=== PATIENT | male | born 1960 | race Caucasian/White ===

== ENCOUNTER 2020-01-20 13:05 | Emergency (ER) | payer SELFPAY ==
[2020-01-20 13:06] VITALS: BP 161/93; PULSE 82; RESP 16; TEMP 36.8; O2SAT 96; BMI 33.7
--- NOTE | 2020-01-20 13:10 | XR_ITS ---
WS: [id number] Portable AP upright chest, 01/20/2020 Clinical Data: cp Comparison: None. Findings: No nodules, masses or effusions are seen. The heart is normal. The pulmonary vascularity is not increased. No pneumonia or pneumothorax is seen. XR/XR chest 1V portable [id number] Impression: Negative chest.
--- NOTE | 2020-01-20 13:11 | ECG_ITS ---
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 Measurements Intervals [place] Rate: 78 P: 70 AK: 168 QRS: -22 QRSD: 110 T: 31 QT: 362 QTc: 413 Interpretive Statements SINUS RHYTHM WITH OCCASIONAL SUPRAVENTRICULAR PREMATURE COMPLEXES BORDERLINE LEFT AXIS DEVIATION [QRS AXIS < -20] No previous ECG available for comparison Electronically Signed On 01-20-2020 16:08:07 DRAFTER ELECTRONIC by Demarcus Tang M.D. [id number]
--- NOTE | 2020-01-20 13:14 | W.ED.BACK ---
HPI - Back Pain/Injury General: Chief Complaint: Back Pain/Injury Stated Complaint: CHEST PAIN Time Seen by Provider: 01/20/20 13:10 Source: patient Mode of arrival: ambulatory Limitations: no limitations History of Present Illness: HPI Narrative: 59-year-old male states he woke up at 10 with some left-sided shoulder pain. He states it was a cramping squeezing type pain. States he had some diaphoresis. Patient son called EMS. He denies any chest pain states his symptoms have since resolved. Denies any shortness of breath. Denies any vomiting or diarrhea. Denies any worsening or improving factors. Associated symptoms: Deny abdominal pain, chills, dysuria, fever(s), nausea or vomiting Review of Systems Const: Denies: fever(s), chills, body aches or change in appetite Eyes: Denies: blurry vision or eye discomfort ENMT: Denies: throat pain or dental pain Card: Reports: chest pain Resp: Denies: dyspnea GI: Denies: abdominal pain, nausea, vomiting or diarrhea : Denies: dysuria Musc: Denies: neck pain or back pain Skin/Breast: Denies: rash Neuro: Denies: headache(s) Psych: Denies: depression Leonel/Lymph: Denies: easy bruising All/Imm: Denies: urticaria Physical Exam Const: COMMON NORMALS: no acute distress, patient oriented x3 and healthy appearing HENMT: COMMON NORMALS: normocephalic and atraumatic HEAD & SCALP: normocephalic and atraumatic Eye: COMMON NORMALS: Equal, round and reactive pupils present and EOMs intact bilaterally PUPIL: Yes Equal, round and reactive pupils present Neck/C-Spine: COMMON NORMALS: full ROM and supple Chest: COMMONS NORMALS: normal inspection of the chest and normal palpation of entire chest wall Resp: COMMON NORMALS: normal respiratory effort, No retractions, No use of accessory muscles and clear to auscultation bilaterally AUSCULTATION: clear to auscultation bilaterally Cardio: COMMON NORMALS: regular rate, regular rhythm and No murmurs present (Cardio) RATE: regular rate RHYTHM: regular rhythm GI: COMMON NORMALS: Normal to inspection, nondistended, normoactive bowel sounds present, Soft to palpation, non-tender and no masses PALPATION: Yes Soft to palpation Extremity: COMMON NORMALS: normal to inspection and full ROM Neuro: COMMON NORMALS: patient oriented x3, moves all extremities and no focal motor deficits Psych: COMMON NORMALS: mental status grossly normal, Normal thought process present and cooperative THOUGHT PROCESS: Normal thought process present Skin: COMMON NORMALS: no rashes or lesions noted and no wounds GENERAL SKIN EXAM: no rashes or lesions noted Course Vital Signs: Vital signs: Vital Signs Temperature 98.3 F 01/20/20 13:06 Pulse Rate 76 01/20/20 15:32 Respiratory Rate 20 H 01/20/20 15:32 Blood Pressure 140/82 01/20/20 15:32 Pulse Oximetry 98 01/20/20 15:32 MDM - Back Pain/Injury MDM Narrative: Medical decision making narrative: Jameel presents here with left shoulder pain and some chest pain that is atypical in nature. He has been pain-free here. Initial and repeat troponin are normal. Patient has no signs of pulmonary embolism. His x-ray was clear. He is stable for discharge this follow-up with PCP in 2 to 4 days return if worsening. Lab Data: Labs: Lab Results 01/20/20 01/20/20 01/20/20 Range/Units 11:20 11: 11: WBC 6.0 (4.0-10.0) 10^3/ uL RBC 5.32 H (4.1-5.3) 10^6/u L Hgb 15.5 (11.7-16.6) g/dL Hct 45.4 (42.0-52.0) % MCV 85.3 (80-94) fL MCH 29.1 (28.0-34.0) pg MCHC 34.1 (30.0-36.0) g/dL RDW 12.1 (12.1-15.1) % Plt Count 181 (130-400) 10^3/c mm MPV 9.7 (7.4-10.4) fL Neut % (Auto) 45.1 % Lymph % (Auto) 45.7 % Bill[place] % (Auto) 6.0 % Eos % (Auto) 2.2 % Baso % (Auto) 0.5 % Neut # (Auto) 2.72 (1.8-7.7) 10^3/u L Lymph # (Auto) 2.8 (0.8-4.8) 10^3/u L Bill[place] # (Auto) 0.4 (0.2-0.9) 10^3/u L Eos # (Auto) 0.1 (0.0-0.8) 10^3/u L Baso # (Auto) 0.0 (0.0-0.1) 10^3/u L Nucleated RBC % (a uto) 0 % Nucleated RBCs # 0.0 /100WBC Sodium 138 (136-145) mmol/L Potassium 4.2 (3.5-5.1) mmol/L Chloride 102 (98-107) mmol/L Carbon Dioxide 27 (22-29) mmol/L Anion Gap 13.2 (5-19) BUN 18 (8-23) mg/dL Creatinine 0.9 (0.7-1.2) mg/dL GFR Calculation 85.8 L (90-130) mL/min Glucose 125 H (65-115) mg/dL Calculated Osmolal ity 289 (285-295) mOsm/k g Calcium 9.1 (8.5-10.5) mg/dL Total Bilirubin 0.6 (0.15-1.2) mg/dL AST 23 (0-40) U/L ALT 30 (0-41) U/L Alkaline Phosphata se 76 (40-130) IU/L Troponin T Baselin e 12 (0-15) ng/L Troponin T 120 Min angie (0-15) ng/L Delta Troponin T (0-10) ABS# Total Protein 6.9 (6.6-8.7) g/dL Albumin 4.7 (3.5-5.2) g/dL Globulin 2.2 (1.3-4.6) g/dL 01/20/20 Range/Units 14:37 WBC (4.0-10.0) 10^3/ uL RBC (4.1-5.3) 10^6/u L Hgb (11.7-16.6) g/dL Hct (42.0-52.0) % MCV (80-94) fL MCH (28.0-34.0) pg MCHC (30.0-36.0) g/dL RDW (12.1-15.1) % Plt Count (130-400) 10^3/c mm MPV (7.4-10.4) fL Neut % (Auto) % Lymph % (Auto) % Bill[place] % (Auto) % Eos % (Auto) % Baso % (Auto) % Neut # (Auto) (1.8-7.7) 10^3/u L Lymph # (Auto) (0.8-4.8) 10^3/u L Billings # (Auto) (0.2-0.9) 10^3/u L Eos # (Auto) (0.0-0.8) 10^3/u L Baso # (Auto) (0.0-0.1) 10^3/u L Nucleated RBC % (a uto) % Nucleated RBCs # /100WBC Sodium (136-145) mmol/L Potassium (3.5-5.1) mmol/L Chloride (98-107) mmol/L Carbon Dioxide (22-29) mmol/L Anion Gap (5-19) BUN (8-23) mg/dL Creatinine (0.7-1.2) mg/dL GFR Calculation (90-130) mL/min Glucose (65-115) mg/dL Calculated Osmolal ity (285-295) mOsm/k g Calcium (8.5-10.5) mg/dL Total Bilirubin (0.15-1.2) mg/dL AST (0-40) U/L ALT (0-41) U/L Alkaline Phosphata se (40-130) IU/L Troponin T Baselin e (0-15) ng/L Troponin T 120 Min angie 10.33 (0-15) ng/L Delta Troponin T -1.67 L (0-10) ABS# Total Protein (6.6-8.7) g/dL Albumin (3.5-5.2) g/dL Globulin (1.3-4.6) g/dL Imaging Data^: CXR: Radiologist's impression: [address] [address] XRay Report Signed Patient: JAMEEL MARROQUIN Unit #: [id number] : 1960 Age/Sex: 59 / M ADM Date: 01/20/20 Loc: ER Room/Bed: Attending Dr: Ordering Provider/Ordering MD: Chester Milian MD Date of Service: 01/20/20 Procedure(s): XR chest 1V portable [id number] Accession Number(s): [id number] Report Number: [id number] WS: [id number] Portable AP upright chest, 01/20/2020 Clinical Data: cp Comparison: None. Findings: No nodules, masses or effusions are seen. The heart is normal. The pulmonary vascularity is not increased. No pneumonia or pneumothorax is seen. XR/XR chest 1V portable [id number] Impression: Negative chest. EKG Data^: EKG 1: Attestation: I personally reviewed and interpreted this EKG as follows: EKG interpretation date: 01/20/20 EKG interpretation time: 13:07 Interpretation: nsr hr [address] or t wave abnormalities qrs 110 qtc 395 EKG 2: Attestation: I personally reviewed and interpreted this EKG as follows: EKG interpretation date: 01/20/20 EKG interpretation time: 15:39 Interpretation: nsr hr [address] or t wave abnormalities qrs 97 qtc 415 Discharge Plan Discharge Patient Disposition: Home Clinical Impression: Chest pain Qualifiers: Chest pain type: unspecified Qualified Code(s): R07.9 - Chest pain, unspecified Condition: Stable Prescriptions: No Action magnesium 250 mg Tablet 250 mg PO DAILY RF: 0 loratadine 10 mg Tablet 10 mg PO DAILY RF: 0 Discharge Orders: Discharge Order (Routine); Ordered 01/20/20 Ordered By: Chester Milian Referrals: Víctor Pearce [Primary Care Provider] - Discharge Diet: Advance as tolerated Discharge Activity: Resume usual activity Patient Instructions: Chest Pain (ED) Coding Level of Care Code ED Plc Engineer for Chg Fwd Exam Comprehensive
[2020-01-20 13:24] LABS: Basophils % 0.5 %; Eosinophils # 0.1 10^3/uL (0.0-0.8); Eosinophils % 2.2 %; Hematocrit 45.4 % (42.0-52.0); Hemoglobin 15.5 g/dL (11.7-16.6); Lymphocytes # 2.8 10^3/uL (0.8-4.8); Lymphocytes % 45.7 %; Mean Corpuscular HGB Conc 34.1 g/dL (30.0-36.0); Mean Corpuscular Hemoglobin 29.1 pg (28.0-34.0); Mean Corpuscular Volume 85.3 fL (80-94); Mean Platelet Volume 9.7 fL (7.4-10.4); Monocytes # 0.4 10^3/uL (0.2-0.9); Neutrophils # 2.72 10^3/uL (1.8-7.7); Neutrophils % 45.1 %; Nucleated Red Blood Cells % 0 %; Platelet Count 181 10^3/cmm (130-400); Red Blood Count 5.32 10^6/uL (4.1-5.3); Red Cell Distribution Width 12.1 % (12.1-15.1)
[2020-01-20 13:31] VITALS: BP 161/89; PULSE 79; RESP 18; O2SAT 96
[2020-01-20 14:36] LABS: Alanine Aminotransferase 30 U/L (0-41); Albumin Level 4.7 g/dL (3.5-5.2); Alkaline Phosphatase 76 IU/L (40-130); Anion Gap 13.2 (5-19); Aspartate Amino Transferase 23 U/L (0-40); Blood Urea Nitrogen 18 mg/dL (8-23); Calcium 9.1 mg/dL (8.5-10.5); Carbon Dioxide 27 mmol/L (22-29); Chloride 102 mmol/L (98-107); Creatinine Clr Calc Pharmacy 111.8411; Globulin 2.2 g/dL (1.3-4.6); Glomerular Filtration Rate 85.8 mL/min (90-130); Glucose 125 mg/dL (65-115); Osmolality Calculated 289 mOsm/kg (285-295); Potassium 4.2 mmol/L (3.5-5.1); Sodium 138 mmol/L (136-145); Total Bilirubin 0.6 mg/dL (0.15-1.2); Total Protein 6.9 g/dL (6.6-8.7); Troponin(5th) Baseline 12 ng/L (0-15)
--- NOTE | 2020-01-20 15:11 | ECG_ITS ---
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 Measurements Intervals [place] Rate: 68 P: 60 IA: 164 QRS: -25 QRSD: 97 T: 33 QT: 397 QTc: 424 Interpretive Statements SINUS RHYTHM BORDERLINE LEFT AXIS DEVIATION [QRS AXIS < -20] Compared to ECG 01/20/2020 13:07:42 No significant changes Electronically Signed On 01-20-2020 17:26:26 CONSTRUCTION HELPER by Demarcus Tang M.D. [id number]
[2020-01-20 15:32] VITALS: BP 140/82; PULSE 76; RESP 20; O2SAT 98
--- NOTE | 2020-01-20 16:05 | PC.NURSE ---
No acute distress, continue to monitor
[2020-01-20 16:22] LABS: Troponin 5 2HR 10.33 ng/L (0-15)
[2020-01-20 16:23] LABS: Troponin 5 2HR Delta -1.67 ABS# (0-10)
[2020-01-20 16:53] VITALS: BP 153/95; PULSE 75; RESP 18; TEMP 36.4; O2SAT 96
== END 2020-01-20 16:55 | disposition home or self-care (01) ==
PROVIDERS: Emergency Provider Emergency Medicine; PCP Physician Assistant Medical
DX: R07.9 Chest pain, unspecified (principal)
CPT/HCPCS: 12345; 71045; 80053; 84484; 85025; 93005; 99283

== ENCOUNTER → 2021-12-04 09:24 | Outpatient (BNVA) | payer BC, MEDICAID, SELFPAY | PROVIDERS: PCP Physician Assistant Medical; Visit Provider Surgery | DX: K42.9 Umbilical hernia without obstruction or gangrene (principal); R19.5 Other fecal abnormalities | CPT/HCPCS: 99203 ==

== ENCOUNTER 2022-03-23 09:07 | Day surgery (SDC) | payer BC, MEDICAID, SELFPAY ==
[2022-03-20 12:46] VITALS: BMI 30.5
[2022-03-23 09:32] VITALS: BP 153/87; PULSE 60; RESP 18; TEMP 36.2; O2SAT 99
[2022-03-23] MEDS: sodium chloride 0.9% 1,000 ML 30 ML IV (09:45)
[2022-03-23 09:50] LABS: Glucose Point of Care 97 mg/dL (70-110)
--- NOTE | 2022-03-23 10:22 | P.ANESASSM_ITS ---
Pre-Anesthetic Assessment Height/Weight: Height 1.83 m Weight 102.058 kg Temp Pulse Resp BP Pulse Ox O2 Del Method 97.2 F L 60 18 153/87 99 03/23/22 09:32 03/23/22 09:32 03/23/22 09:32 03/23/22 09:32 03/23/22 09:32 03/23/22 09:32 Preop Diagnosis: screening Operation Date: 03/23/22 10:45 Proposed Procedures p Colonoscopy 08963,Z12.11(Not Applicable) - Kalen Stanford DO Familial anesthetic complications: none Was Beta Sabrina taken within 24 hours: N/A Was Clonidine taken within 24 hours: N/A Last intake: Intake Last Liquid Date 03/22/22 Last Liquid Time 22:30 Last Solid Date 03/22/22 Last Solid Time 20:00 Social No alcohol and No tobacco Airway Submandibular: within normal limits Cervical ROM: within normal limits Mallampati: Class II Dentition: chipped (molar on right side.) Pulmonary None reported CV/HEM Hypertension None reported Hepatic None reported GI Gastroesophageal Reflux Disease Metabolic Diabetes Mellitus and Hyperlipidemia [facility] [place] None reported Neuropsych None reported Anesthetic Plan ASA status: 2 Anesthesia: MAC Medications/Allergies Home Medications Medication Instructions Recorded Confirmed Last Taken Type atorvastatin 20 mg tablet 20 mg PO DAILY 11/01/21 03/23/22 03/21/22 History metformin 500 mg tablet 1 mg PO BID 11/01/21 03/23/22 03/22/22 History peg 3350-electrolytes 236 240 ml PO Q10M #4,000 mL 12/04/21 03/23/22 03/22/22 Rx gram-22.74 gram-6.74 gram-5.86 gram solution (Golytely) hydrochlorothiazide 12.5 mg tablet 12.5 mg PO DAILY 03/20/22 03/23/22 03/22/22 H istory Allergies Allergy/AdvReac Type Severity Reaction Status Date / Time Penicillins Allergy ALGY-Hives Verified 03/23/22 09:46 Current Medications Generic Name Dose Route Start Last Admin Trade Name Freq PRN Reason Stop Dose Admin Sodium Chloride 1,000 mls @ 30 mls/hr 03/23/22 09:30 03/23/22 09:45 Sodium Chloride 0.9% IV 03/24/22 09:29 30 mls/hr .Q24H LAUREN Administration PFSH Anesthesia Medical History Hyperlipidemia Umbilical hernia Surgical History Hx of appendectomy Hx of hernia repair AGE 18'S Hx of tonsillectomy Social History Smoking and tobacco status: never smoked Data Anesthesia Cardiac Studies: No Data to Display
--- NOTE | 2022-03-23 10:48 | PM.HP ---
Providers/Chief Complaint Primary Care Provider: Víctor Pearce Chief Complaint: encounter for screening History of Present Illness Jameel Pearson is a 61 year old male here for colonoscopy Medications/Allergies Home Medications Medication Instructions Recorded Confirmed Last Taken Type atorvastatin 20 mg tablet 20 mg PO DAILY 11/01/21 03/23/22 03/21/22 History metformin 500 mg tablet 1 mg PO BID 11/01/21 03/23/22 03/22/22 History peg 3350-electrolytes 236 240 ml PO Q10M #4,000 mL 12/04/21 03/23/22 03/22/22 Rx gram-22.74 gram-6.74 gram-5.86 gram solution (Golytely) hydrochlorothiazide 12.5 mg tablet 12.5 mg PO DAILY 03/20/22 03/23/22 03/22/22 History Allergies Allergy/AdvReac Type Severity Reaction Status Date / Time Penicillins Allergy ALGY-Hives Verified 03/23/22 09:46 PFSH Acute PFSH: Medical History Hyperlipidemia Umbilical hernia Surgical History Hx of appendectomy Hx of hernia repair AGE 18'S Hx of tonsillectomy Social History Smoking and tobacco status: never smoked Vitals/I&O/Wt Last Vital Signs Temp 97.2 F L 03/23/22 09:32 Pulse 60 03/23/22 09:32 Resp 18 03/23/22 09:32 BP 153/87 03/23/22 09:32 Pulse Ox 99 03/23/22 09:32 O2 Del Method 03/23/22 09:32 A&P Assessment and plan (1) Colon cancer screening: Plan Colonoscopy Attestations Medical Necessity Statement*: Home Coding Level of Care Code Acute Code for Chg Fwd Diagnoses Colon cancer screening Z12.11
[2022-03-23 11:33] VITALS: BP 128/81; PULSE 62; RESP 14; TEMP 36.2; O2SAT 100
[2022-03-23 11:48] VITALS: BP 159/98; PULSE 86; RESP 16; O2SAT 99
--- NOTE | 2022-03-23 19:40 | ANE.PACU2 ---
Inpatient post-anesthesia follow up: Airway intact: Yes Vital signs: Temperature 97.1 F Pulse Rate 86 Respiratory Rate 16 Blood Pressure 159/98 Pulse Oximetry 99 Oxygen Delivery Me thod Room Air Oxygen Flow Rate Fraction of Inspir ed Oxygen Hydration adequate: Yes Nausea and vomiting: No Pain level: 1 Mental status: Baseline
== END 2022-03-23 12:07 | disposition home or self-care (01) ==
PROVIDERS: PCP Physician Assistant Medical; Visit Provider Surgery
PROC: 0DJD8ZZ Inspection of Lower Intestinal Tract, Via Natural or Artificial Opening Endoscopic (ICD-10-PCS; CPT 45378; principal; 2022-03-23 10:45)
DX: Z12.11 Encounter for screening for malignant neoplasm of colon (principal); D12.2 Benign neoplasm of ascending colon; D12.5 Benign neoplasm of sigmoid colon; Z79.84 Long term (current) use of oral hypoglycemic drugs; E78.5 Hyperlipidemia, unspecified; I10 Essential (primary) hypertension; K21.9 Gastro-esophageal reflux disease without esophagitis; E11.9 Type 2 diabetes mellitus without complications
CPT/HCPCS: 36416; 45381; 45385; 82962; 88305; J2704; J7030

== ENCOUNTER 2022-04-25 10:19 | Day surgery (SDC) | payer BC, MEDICAID, SELFPAY ==
[2022-04-24 11:01] VITALS: BMI 30.2
[2022-04-25] VITALS (10 sets, daily range): BP systolic 121–140; BP diastolic 57–87; PULSE 64–98; RESP 9–18; TEMP 36.3–36.6; O2SAT 97–100
[2022-04-25 11:18] LABS: Glucose Point of Care 95 mg/dL (70-110)
[2022-04-25] MEDS: sodium chloride 0.9% 1,000 ML 30 ML IV (11:30)
--- NOTE | 2022-04-25 11:53 | W.PM.OPSUD ---
Surgery/Procedure H&P Update DATE OF PROCEDURE: April 25, 2022 DATE H&P PERFORMED: 03/28/22 PREOP DIAGNOSIS: cecal mass PLANNED PROCEDURE: Operation Date: 04/25/22 12:00 Proposed Procedures p Colonoscopy with endoscopic mucosal resection of cecal mass 37031,K63.89(Not Applicable) - Kalen Stanford, DO s Endoscopic Mucosal Resection(Not Applicable) - Kalen Stanford, DO Possible laparoscopic ileocectomy
--- NOTE | 2022-04-25 11:57 | ANES.PREANE2 ---
Pre-Anesthetic Assessment Height/Weight: Height 1.83 m Weight 101.151 kg Temp Pulse Resp BP Pulse Ox O2 Del Method 97.9 F 64 18 140/87 98 04/25/22 10:45 04/25/22 10:45 04/25/22 10:45 04/25/22 10:45 04/25/22 10:45 04/25/22 10:57 Preop Diagnosis: cecal mass Operation Date: 04/25/22 12:00 Proposed Procedures p Colonoscopy with endoscopic mucosal resection of cecal mass 59095,K63.89(Not Applicable) - Kalen Stanford DO s Endoscopic Mucosal Resection(Not Applicable) - Kalen Stanford DO Familial anesthetic complications: none Was Beta Sabrina taken within 24 hours: N/A Was Clonidine taken within 24 hours: N/A Last intake: Intake Last Liquid Date 04/24/22 Last Liquid Time 00:00 Last Solid Date 04/23/22 Last Solid Time 20:00 Social No alcohol and No tobacco Exam alert, oriented x 3, clear to auscultation bilaterally and regular rate & rhythm Airway Submandibular: within normal limits Cervical ROM: within normal limits Mallampati: Class II Dentition: chipped CV/HEM Hypertension Metabolic Diabetes Mellitus, Hyperlipidemia and Morbid Obesity Anesthetic Plan ASA status: 2 Anesthesia: General Medications/Allergies Home Medications Medication Instructions Recorded Confirmed Last Taken Type atorvastatin 20 mg tablet 20 mg PO DAILY 11/01/21 04/24/22 04/24/22 History metformin 500 mg tablet 1 mg PO BID 11/01/21 04/24/22 04/24/22 History hydrochlorothiazide 12.5 mg tablet 12.5 mg PO DAILY 03/20/22 04/24/22 04/24/22 History Allergies Allergy/AdvReac Type Severity Reaction Status Date / Time Penicillins Allergy ALGY-Hives Verified 04/24/22 10:57 [facility] Anesthesia Medical History Hyperlipidemia Umbilical hernia Surgical History Hx of appendectomy Hx of hernia repair AGE 18'S Hx of tonsillectomy Social History Smoking and tobacco status: never smoked Data Anesthesia Cardiac Studies: No Data to Display
--- NOTE | 2022-04-25 12:44 | SUR.OPER ---
21mL ns injected at ascending colon mass site
--- NOTE | 2022-04-25 13:23 | SUR.OPER ---
21 ml of ns injected into ascending colon during procedure
--- NOTE | 2022-04-25 16:55 | ANE.PACU2 ---
Inpatient post-anesthesia follow up: Airway intact: Yes Vital signs: Temperature 97.6 F Pulse Rate 72 Respiratory Rate 18 Blood Pressure 125/65 Pulse Oximetry 97 Oxygen Delivery Me thod Room Air Oxygen Flow Rate 6 Fraction of Inspir ed Oxygen Hydration adequate: Yes Nausea and vomiting: No Pain level: 2 Mental status: Baseline
== END 2022-04-25 15:40 | disposition home or self-care (01) ==
PROVIDERS: PCP Nurse Practitioner Family; Visit Provider Surgery
PROC: 0DJD8ZZ Inspection of Lower Intestinal Tract, Via Natural or Artificial Opening Endoscopic (ICD-10-PCS; CPT 45378; principal; 2022-04-25 12:00)
DX: K63.89 Other specified diseases of intestine (principal); D12.2 Benign neoplasm of ascending colon; I10 Essential (primary) hypertension; E11.9 Type 2 diabetes mellitus without complications; E78.5 Hyperlipidemia, unspecified; E66.01 Morbid (severe) obesity due to excess calories; Z68.30 Body mass index [BMI] 30.0-30.9, adult; Z79.84 Long term (current) use of oral hypoglycemic drugs
CPT/HCPCS: 36416; 45381; 45385; 45390; 82962; 88305; J1100; J2405; J2704; J3010; J3490; J7030

== ENCOUNTER 2022-12-05 08:56 | Day surgery (SDC) | payer BC, MEDICAID, SELFPAY ==
[2022-12-03 10:45] VITALS: BMI 28.8
[2022-12-05 09:08] VITALS: BP 143/78; PULSE 65; RESP 16; TEMP 36.9; O2SAT 99
[2022-12-05 09:11] VITALS: BMI 28.8
[2022-12-05] MEDS: sodium chloride 0.9% 1,000 ML 30 ML IV (09:24)
[2022-12-05 09:29] LABS: Glucose Point of Care 91 mg/dL (70-110)
--- NOTE | 2022-12-05 09:40 | ANES.PREANE2 ---
Pre-Anesthetic Assessment Height/Weight: Height 1.83 m Weight 96.615 kg Temp Pulse Resp BP Pulse Ox O2 Del Method 98.4 F 65 16 143/78 99 Room Air 12/05/22 09:08 12/05/22 09:08 12/05/22 09:08 12/05/22 09:08 12/05/22 09:08 12/05/22 09:08 Preop Diagnosis: cecal mass Operation Date: 12/05/22 10:00 Proposed Procedures p : 52200 colon D12.6(Not Applicable) - Kalen Stanford DO Familial anesthetic complications: previous difficult intubation, easy mask ventilation Was Beta Sabrina taken within 24 hours: N/A Was Clonidine taken within 24 hours: N/A Last intake: Intake Last Liquid Date 12/04/22 Last Liquid Time 23:00 Last Solid Date 12/03/22 Last Solid Time 18:00 Social No alcohol and No tobacco Exam alert, oriented x 3, clear to auscultation bilaterally and regular rate & rhythm Airway Submandibular: within normal limits Cervical ROM: within normal limits Mallampati: Class IV Dentition: chipped Pulmonary None reported CV/HEM Hypertension None reported Hepatic None reported GI None reported Metabolic Diabetes Mellitus (type 2) and Hyperlipidemia Musc/skel Lower Back Pain Neuropsych None reported Anesthetic Plan ASA status: 2 Anesthesia: MAC Medications/Allergies Home Medications Medication Instructions Recorded Confirmed Last Taken Type atorvastatin 20 mg tablet 20 mg PO DAILY 11/01/21 12/05/22 12/03/22 History metformin 500 mg tablet 500 mg PO BID 11/01/21 12/05/22 12/04/22 History lisinopril 10 mg tablet 10 mg PO DAILY 12/03/22 12/05/22 12/04/22 History Allergies Allergy/AdvReac Type Severity Reaction Status Date / Time Penicillins Allergy ALGY-Hives Verified 05/01/22 16:52 Current Medications Generic Name Dose Route Start Last Admin Trade Name Freq PRN Reason Stop Dose Admin Sodium Chloride 1,000 mls @ 30 mls/hr 12/05/22 09:00 12/05/22 09:24 Sodium Chloride 0.9% IV 12/06/22 08:59 30 mls/hr .Q24H LAUREN Administration PFSH Anesthesia Medical History (Updated 05/01/22 @ 17:00 by Kalen Stanford DO) Difficult intubation High grade dysplasia in colonic adenoma Hyperlipidemia Umbilical hernia Surgical History Hx of appendectomy Hx of hernia repair AGE 18'S Hx of tonsillectomy Social History Smoking and tobacco status: never smoked Data Anesthesia Cardiac Studies: No Data to Display
--- NOTE | 2022-12-05 10:34 | PM.HP ---
Providers/Chief Complaint Primary Care Provider: Joanne Fontenot MD Chief Complaint: D12.6 History of Present Illness Jameel Conte is a 62 year old male Review of Systems General: Reports: 10 or more systems reviewed and unremarkable except in HPI and below Medications/Allergies Home Medications Medication Instructions Recorded Confirmed Last Taken Type atorvastatin 20 mg tablet 20 mg PO DAILY 11/01/21 12/05/22 12/03/22 History metformin 500 mg tablet 500 mg PO BID 11/01/21 12/05/22 12/04/22 History lisinopril 10 mg tablet 10 mg PO DAILY 12/03/22 12/05/22 12/04/22 History Allergies Allergy/AdvReac Type Severity Reaction Status Date / Time Penicillins Allergy ALGY-Hives Verified 05/01/22 16:52 PFSH Acute PFSH: Medical History Difficult intubation High grade dysplasia in colonic adenoma Hyperlipidemia Umbilical hernia Surgical History Hx of appendectomy Hx of hernia repair AGE 18'S Hx of tonsillectomy Social History Smoking and tobacco status: never smoked Vitals/I&O/Wt Last Vital Signs Temp 98.4 F 12/05/22 09:08 Pulse 65 12/05/22 09:08 Resp 16 12/05/22 09:08 BP 143/78 12/05/22 09:08 Pulse Ox 99 12/05/22 09:08 O2 Del Method Room Air 12/05/22 09:08 Weight last 48 hrs Weight 213 lb Weight 213 lb Physical Exam Narrative: General : Patient is well developed , no acute distress, oriented x3 Head : Normal cephalic, a-traumatic. Ears : Pinnae and external canal are normal. Hearing is normal. Eyes : PERRLA, Sclera and injection are normal. No conjunctival discharge. Nose : Mucous membranes are without erythema. Throat : buccal mucosa is normal, gums are without significant recession or hypertrophy. Lungs : Equal chest rise bilaterally, no use of accessory muscles, trachea is midline. Cor : Rate and rhythm are normal. Abdomen : Soft, ND, NT, no g/r/m Extremities : No edema, no cyanosis or clubbing, dorsalis pedis pulses are present bilaterally, non-tender to palpation of calves. Upper extremities are normal bilaterally. Back : non-tender to palpation, no CVA tenderness. Neuro : CN II - XII intact, Upper and lower extremities have equal and full strength A&P Assessment and plan (1) Colon polyp: Plan Colonoscopy The risks and benefits of the procedure, including bleeding, infection, intestinal perforation requiring surgery, missed lesion were explained to the patient. The patient is understanding of the risks and wishes to proceed. Attestations Medical Necessity Statement*: Home Coding Level of Care Code Acute Code for g Fwd Diagnoses Colon polyp K63.5
[2022-12-05 11:02] VITALS: BP 107/65; PULSE 59; RESP 16; TEMP 36.7; O2SAT 99
[2022-12-05 11:07] VITALS: BP 129/71; PULSE 85; RESP 16; O2SAT 100
[2022-12-05 11:17] VITALS: BP 127/73; PULSE 55; RESP 18; O2SAT 99
--- NOTE | 2022-12-05 16:33 | ANE.PACU2 ---
Inpatient post-anesthesia follow up: Airway intact: Yes Vital signs: Temperature 98.0 F Pulse Rate 55 Respiratory Rate 18 Blood Pressure 127/73 Pulse Oximetry 99 Oxygen Delivery Me thod Room Air Oxygen Flow Rate 3 Fraction of Inspir ed Oxygen Hydration adequate: Yes Nausea and vomiting: No Pain level: 2 Mental status: Baseline
== END 2022-12-05 11:50 | disposition home or self-care (01) ==
PROVIDERS: PCP Family Medicine; Visit Provider Surgery
PROC: 0DJD8ZZ Inspection of Lower Intestinal Tract, Via Natural or Artificial Opening Endoscopic (ICD-10-PCS; CPT 45378; principal; 2022-12-05 10:00)
DX: D12.2 Benign neoplasm of ascending colon (principal); I10 Essential (primary) hypertension; E11.9 Type 2 diabetes mellitus without complications; E78.5 Hyperlipidemia, unspecified; Z79.84 Long term (current) use of oral hypoglycemic drugs
CPT/HCPCS: 36416; 45385; 45388; 82962; 88305; J2704; J3490; J7030

== ENCOUNTER 2023-08-21 05:45 | Day surgery (SDC) | payer BC, MEDICAID, SELFPAY ==
[2023-08-21 05:59] VITALS: BP 140/82; PULSE 60; RESP 18; TEMP 36.4; O2SAT 100; BMI 28.2
[2023-08-21] MEDS: sodium chloride 0.9% 1,000 ML 30 ML IV (06:12)
[2023-08-21 06:31] LABS: Glucose Point of Care 81 mg/dL (70-110)
--- NOTE | 2023-08-21 06:41 | P.ANESASSM_ITS ---
Pre-Anesthetic Assessment Height/Weight: Height 1.83 m Weight 94.347 kg Temp Pulse Resp BP Pulse Ox O2 Del Method 97.6 F 60 18 140/82 100 Room Air 08/21/23 05:59 08/21/23 05:59 08/21/23 05:59 08/21/23 05:59 08/21/23 05:59 08/21/23 05:59 Operation Date: 08/21/23 07:00 Proposed Procedures p Colonoscopy(Not Applicable) - Kalen Stanford, DO Was Beta Sabrina taken within 24 hours: N/A Was Clonidine taken within 24 hours: N/A Last intake: Intake Last Liquid Date 08/20/23 Last Liquid Time 23:00 Last Solid Date 08/19/23 Last Solid Time 19:00 Social No alcohol and No tobacco Exam alert, oriented x 3, clear to auscultation bilaterally and regular rate & rhythm Airway Submandibular: within normal limits Cervical ROM: within normal limits Mallampati: Class II Comments: Comments: prominent dentition history of difficult intubation, reviewed records with patient History/ROS No significant history except as noted and No significant complaints Pulmonary None reported CV/HEM None reported None reported Hepatic None reported GI None reported Metabolic Diabetes Mellitus and Hyperlipidemia [facility] [place] None reported Neuropsych None reported Anesthetic Plan ASA status: 2 Anesthesia: Anesthesia Evaluation and MAC Risk of > 500 ml blood loss (7ml/kg in children): Yes, adequate IV access and fluids planned Medications/Allergies Home Medications Medication Instructions Recorded Confirmed Last Taken Type atorvastatin 20 mg tablet 20 mg PO DAILY 11/01/21 08/19/23 08/20/23 History metformin 500 mg tablet 500 mg PO BID 11/01/21 08/19/23 08/20/23 History lisinopril 10 mg tablet 10 mg PO DAILY 12/03/22 08/19/23 08/20/23 History Allergies Allergy/AdvReac Type Severity Reaction Status Date / Time Penicillins Allergy ALGY-Hives Verified 12/19/22 15:40 Current Medications Generic Name Dose Route Start Last Admin Trade Name Freq PRN Reason Stop Dose Admin Sodium Chloride 1,000 mls @ 30 mls/hr 08/21/23 06:00 08/21/23 06:12 Sodium Chloride 0.9% IV 08/22/23 05:59 30 mls/hr .Q24H LAUREN Administration PFSH Anesthesia Medical History Difficult intubation High grade dysplasia in colonic adenoma Hyperlipidemia Umbilical hernia Surgical History Hx of appendectomy Hx of hernia repair AGE 18'S Hx of tonsillectomy Social History Smoking and tobacco/nicotine status: never used tobacco/nicotine Data Anesthesia Cardiac Studies: No Data to Display
--- NOTE | 2023-08-21 06:45 | PM.HP ---
Providers/Chief Complaint Primary Care Provider: Joanne Fontenot MD Chief Complaint: D12.6 History of Present Illness Jameel Conte is a 62 year old male Review of Systems General: Reports: 10 or more systems reviewed and unremarkable except in HPI and below Medications/Allergies Home Medications Medication Instructions Recorded Confirmed Last Taken Type atorvastatin 20 mg tablet 20 mg PO DAILY 11/01/21 08/19/23 08/20/23 History metformin 500 mg tablet 500 mg PO BID 11/01/21 08/19/23 08/20/23 History lisinopril 10 mg tablet 10 mg PO DAILY 12/03/22 08/19/23 08/20/23 History Allergies Allergy/AdvReac Type Severity Reaction Status Date / Time Penicillins Allergy ALGY-Hives Verified 12/19/22 15:40 PFSH Acute PFSH: Medical History Difficult intubation High grade dysplasia in colonic adenoma Hyperlipidemia Umbilical hernia Surgical History Hx of appendectomy Hx of hernia repair AGE 18'S Hx of tonsillectomy Social History Smoking and tobacco/nicotine status: never used tobacco/nicotine Vitals/I&O/Wt Last Vital Signs Temp 97.6 F 08/21/23 05:59 Pulse 60 08/21/23 05:59 Resp 18 08/21/23 05:59 BP 140/82 08/21/23 05:59 Pulse Ox 100 08/21/23 05:59 O2 Del Method Room Air 08/21/23 05:59 Weight last 48 hrs Weight 208 lb A&P Assessment and plan (1) High grade dysplasia in colonic adenoma: Plan Colonoscopy Attestations Medical Necessity Statement*: Home Coding Level of Care Code Acute Code for Chg Fwd Diagnoses High grade dysplasia in colonic adenoma D12.6
[2023-08-21 07:31] VITALS: BP 112/65; PULSE 62; RESP 18; TEMP 36.4; O2SAT 99
[2023-08-21 07:45] VITALS: BP 104/68; PULSE 72; RESP 18; O2SAT 99
[2023-08-21 07:59] VITALS: BP 124/75; PULSE 60; RESP 18; O2SAT 98
--- NOTE | 2023-08-21 15:38 | ANE.PACU2 ---
Inpatient post-anesthesia follow up: Airway intact: Yes Vital signs: Temperature 97.6 F Pulse Rate 60 Respiratory Rate 18 Blood Pressure 124/75 Pulse Oximetry 98 Oxygen Delivery Me thod Room Air Oxygen Flow Rate Fraction of Inspir ed Oxygen Hydration adequate: Yes Nausea and vomiting: No Pain level: 2 Mental status: Baseline
== END 2023-08-21 08:17 | disposition home or self-care (01) ==
PROVIDERS: PCP Family Medicine; Visit Provider Surgery
PROC: 0DJD8ZZ Inspection of Lower Intestinal Tract, Via Natural or Artificial Opening Endoscopic (ICD-10-PCS; CPT 45378; principal; 2023-08-21 07:00)
DX: Z12.11 Encounter for screening for malignant neoplasm of colon (principal); Z86.010 Personal history of colon polyps; K64.8 Other hemorrhoids; D12.5 Benign neoplasm of sigmoid colon; D12.8 Benign neoplasm of rectum; E11.9 Type 2 diabetes mellitus without complications; E78.5 Hyperlipidemia, unspecified
CPT/HCPCS: 36416; 45385; 82962; 88305; J2704; J3490; J7030

== ENCOUNTER → 2023-09-19 11:45 | Outpatient (BNVA) | payer MEDICARE, SELFPAY | PROVIDERS: PCP Family Medicine; Visit Provider Surgery | DX: Z09 Encounter for follow-up examination after completed treatment for conditions other than malignant neoplasm (principal) | CPT/HCPCS: 99214 ==

== ENCOUNTER → 2023-10-30 10:20 | Outpatient (BNVA) | payer MEDICARE, SELFPAY | PROVIDERS: PCP Family Medicine; Visit Provider Nurse Practitioner Family | DX: L81.4 Other melanin hyperpigmentation (principal); D22.4 Melanocytic nevi of scalp and neck; L85.3 Xerosis cutis; I82.1 Thrombophlebitis migrans | CPT/HCPCS: 99213 ==

== ENCOUNTER → 2024-09-14 10:36 | Outpatient (BNVA) | payer MEDICARE, SELFPAY | PROVIDERS: PCP Family Medicine; Visit Provider Student in an Organized Health Care Education/Training Program | DX: D12.6 Benign neoplasm of colon, unspecified (principal) | CPT/HCPCS: 99214 ==

== ENCOUNTER 2025-01-19 08:40 | Day surgery (SDC) | payer MEDICARE, SELFPAY ==
[2025-01-19 09:04] VITALS: BP 142/78; PULSE 64; RESP 18; TEMP 36.3; O2SAT 98; BMI 27.6
--- NOTE | 2025-01-19 09:32 | P.ANESASSM_ITS ---
Pre-Anesthetic Assessment Height/Weight: Height 1.83 m Weight 92.533 kg Temp Pulse Resp BP Pulse Ox O2 Del Method 97.3 F L 64 18 142/78 98 Room Air 01/19/25 09:04 01/19/25 09:04 01/19/25 09:04 01/19/25 09:04 01/19/25 09:04 01/19/25 09:04 Operation Date: 01/19/25 10:15 Proposed Procedures p Colonoscopy [id number] G0105 D12.6(Not Applicable) - Norris Zepeda MD Familial anesthetic complications: Difficult intubation - patient has large floppy epiglottis. Bougie and Glidescope was ultimately required during that episode, 8 total attempts Was Beta Sabrina taken within 24 hours: N/A Was Clonidine taken within 24 hours: N/A Last intake: Intake Last Liquid Date 01/18/25 Last Liquid Time 23:45 Last Solid Date 01/18/25 Last Solid Time 06:00 Social No alcohol and No tobacco Exam alert, oriented x 3, clear to auscultation bilaterally and regular rate & rhythm Metabolic Diabetes Mellitus and Hyperlipidemia Anesthetic Plan ASA status: 3 Anesthesia: MAC Risk of > 500 ml blood loss (7ml/kg in children): No Medications/Allergies Home Medications ?Medication ?Instructions ?Recorded ?Confirmed ?Last Taken ?Type atorvastatin 20 mg tablet 20 mg PO DAILY 11/01/2110/0201/17/25 History metformin 500 mg tablet 500 mg PO BID 11/01/2101/1501/18/25 History Allergies Allergy/AdvReac Type Severity Reaction Status Date / Time Penicillins Allergy ALGY-Hives Verified 01/15/25 11:34 Current Medications Generic Name Dose Route Start Last Admin Trade Name Freq PRN Reason Stop Dose Admin Sodium Chloride 1,000 mls @ 15 mls/hr 01/19/25 08:50 01/19/25 09:20 Sodium Chloride 0.9% IV 01/20/25 08:49 15 mls/hr .Q24H PRN Administration COLONOSCOPY FLUIDS PFSH Anesthesia Medical History Tubular adenoma of colon High grade dysplasia in colonic adenoma Difficult intubation Umbilical hernia Hyperlipidemia Surgical History Hx of appendectomy Hx of tonsillectomy Hx of hernia repair AGE 18'S Social History Smoking and tobacco/nicotine status: never used tobacco/nicotine
--- NOTE | 2025-01-19 09:45 | W.PM.OPSFHP ---
Same Day Surgery H&P Indication for Procedure/HPI DATE OF PROCEDURE: January 19, 2025 CHIEF COMPLAINT/INDICATIONFOR SURGICAL PROCEDURE: Screening colonoscopy PREOP DIAGNOSIS: Screening colonoscopy PLANNED PROCEDURE: Operation Date: 01/19/25 10:15 Proposed Procedures p Colonoscopy [id number] G0105 D12.6(Not Applicable) - Norris Zepeda MD Medications/Allergies* Home Medications ?Medication ?Instructions ?Recorded ?Confirmed ?Type atorvastatin 20 mg tablet 20 mg PO DAILY 11/01/21 01/15/25 History metformin 500 mg tablet 500 mg PO BID 11/01/21 01/15/25 History Allergies/Adverse Reactions Allergy/AdvReac Type Severity Reaction Status Date / Time Penicillins Allergy ALGY-Hives Verified 01/15/25 11:34 Current Medications: Generic Name Dose Route Start Last Admin Trade Name Freq PRN Reason Stop Dose Admin Sodium Chloride 1,000 mls @ 15 mls/hr 01/19/25 08:50 01/19/25 09:20 Sodium Chloride 0.9% IV 01/20/25 08:49 15 mls/hr .Q24H PRN Administration COLONOSCOPY FLUIDS Pertinent History/Comorbid Conditions* Medical History (Updated 09/23/23 @ 23:22 by Kalen Stanford DO) Tubular adenoma of colon High grade dysplasia in colonic adenoma Difficult intubation Umbilical hernia Hyperlipidemia Surgical History (Updated 12/06/21 @ 15:16 by Charlotte Nunez DO) Hx of appendectomy Hx of tonsillectomy Hx of hernia repair AGE 18'S Social History Smoking and tobacco/nicotine status: never used tobacco/nicotine Pertinent Exam Findings alert, oriented x 3, clear to auscultation bilaterally, regular rate & rhythm and procedure specific exam findings Abdomen soft nontender nondistended Recommendations Risks and benefits of procedure reviewed and Patient/family agree to proceed Surgery/Procedure today Other Plans: I have explained the risks and benefits of a screening colonoscopy and the patient agrees to proceed. Patient is average for colon cancer. Patient understands that hemoccult is an alternative and still decides to proceed with colonoscopy. Had an extensive discussion with the patient. Answered all questions. Patient understands that the risks include a 1% risk of iatrogenic perforation and risk of aspiration. Coding Level of Care Code Acute Code for Chg Fwd
[2025-01-19 10:15] VITALS: BP 105/63; PULSE 57; RESP 16; TEMP 36.3; O2SAT 100
[2025-01-19 10:32] VITALS: BP 120/68; PULSE 59; RESP 18; O2SAT 99
--- NOTE | 2025-01-19 10:45 | ANE.PACU2 ---
Inpatient post-anesthesia follow up: Airway intact: Yes Vital signs: Temperature 97.3 F Pulse Rate 59 Respiratory Rate 18 Blood Pressure 120/68 Pulse Oximetry 99 Oxygen Delivery Me thod Room Air Oxygen Flow Rate Fraction of Inspir ed Oxygen Hydration adequate: Yes Nausea and vomiting: No Pain level: 1 Mental status: Baseline
== END 2025-01-19 10:48 | disposition home or self-care (01) ==
PROVIDERS: PCP Family Medicine; Visit Provider Student in an Organized Health Care Education/Training Program
PROC: 0DJD8ZZ Inspection of Lower Intestinal Tract, Via Natural or Artificial Opening Endoscopic (ICD-10-PCS; CPT 45378; principal; 2025-01-19 10:15)
DX: Z12.11 Encounter for screening for malignant neoplasm of colon (principal); D12.2 Benign neoplasm of ascending colon; Z79.84 Long term (current) use of oral hypoglycemic drugs; E78.5 Hyperlipidemia, unspecified; E11.9 Type 2 diabetes mellitus without complications
CPT/HCPCS: 36416; 45385; 82962; 88305; J2704; J7030

== ENCOUNTER → 2025-02-01 10:06 | Outpatient (BNVA) | payer MEDICARE, SELFPAY | PROVIDERS: PCP Family Medicine; Visit Provider Student in an Organized Health Care Education/Training Program | DX: Z51.89 Encounter for other specified aftercare (principal) | CPT/HCPCS: 99213 ==